=== PATIENT | female | born 1975 | race Caucasian/White ===

== ENCOUNTER → 2020-06-05 | Outpatient (CLI) | payer OTHER ==
[~2020-06-05] MED LIST: IRON 100 PLUS1 EACH PO; PRENATAL VITAM1 EAC2 PO
== END ==
LOC: LAB 16:46 → LAB SHORT 16:46
DX: N89.8 Other specified noninflammatory disorders of vagina (principal); B95.1 Streptococcus, group B, as the cause of diseases classified elsewhere; Z88.2 Allergy status to sulfonamides
CPT/HCPCS: 87070; 87147; 87205

== ENCOUNTER → 2020-09-15 | Outpatient (CLI) | payer OTHER | END | disposition home or self-care (01) | LOC: LAB 08:25 → LAB SHORT 08:25 | DX: R30.0 Dysuria (principal) | CPT/HCPCS: 87086 ==

== ENCOUNTER → 2020-09-20 | Outpatient (CLI) | payer OTHER | END | disposition home or self-care (01) | LOC: LAB SHORT 16:28 → LAB 16:28 | DX: N76.0 Acute vaginitis (principal) | CPT/HCPCS: 87070; 87205 ==

== ENCOUNTER 2023-10-24 08:01 | Day surgery (SDC) | payer OTHER ==
[~2023-10-24] VITALS: Ht 167.6 cm; Wt 62.0 kg
[2023-10-24] VITALS (12 sets, daily range): BP systolic 82–134; BP diastolic 49–83
[~2023-10-24 08:01] MED LIST changes: +CeFAZolin Sodium 2,000 MG in NS 100 ML IV SCH; +Diflucan100 MG PO; +Estrace Vagin42.5 GM VAG; +Lactated Ringer's 1,000 ML IV SCH; +NITR100CA PO; +PANTOPRAZOLE SO20 MG PO; +Preparation H26 GM; +VALA500 PO
--- NOTE | 2023-10-24 08:44 | NUR ---
Ambulatory in Day Surgery History, Chart, Medications and Allergies reviewed before start of procedure.Lungs clear T/O to Auscultation. Patient confirms NPO status and agrees with scheduled surgery. Patient reports completing Chlorhexadine shower X2 prior to admission to hospital.Surgical site prepped with 2% Chlorhexidine cloth wipe. Patient States Post-Procedure ride home has been arranged.
[2023-10-24] MEDS ORDERED: EpiNEPhrine 1 MG/1 ML 1ML Vial ONE (09:00)
[2023-10-24] MEDS ORDERED: Bupivacaine 0.5% HCl 5 MG/ML 30MLVIAL ONE (09:00)
[2023-10-24] MEDS ORDERED: Lidocaine 2%-Epineph 1:200000 20 ML SDV ONE (09:43)
[2023-10-24] MEDS ORDERED: Scopolamine Hydrobromide Patch TOP ONE (09:55)
[2023-10-24] MEDS ORDERED: Midazolam HCl 1MG / ML 2ML Vial IV ONE (09:55)
[2023-10-24] MEDS ORDERED: Ondansetron HCl 2 MG / ML 2ML Vial ONE (10:02)
[2023-10-24] MEDS ORDERED: propofoL 20 ML IV ONE (10:02)
[2023-10-24] MEDS ORDERED: Lidocaine HCl 2% 20 ML MDV ONE (10:02)
[2023-10-24] MEDS ORDERED: Dexamethasone Sod Phos 10 MG/ML 1ML VIAL ONE (10:02)
[2023-10-24] MEDS ORDERED: FentaNYL Citrate 50 MCG/ML 2 ML Injection ONE (10:02)
[2023-10-24] MEDS ORDERED: Ketorolac Tromethamine 30mg Vial ONE (10:02)
[2023-10-24] MEDS ORDERED: Rocuronium Bromide 10 MG/ML 5ML Injection IV ONE (10:02)
[2023-10-24] MEDS ORDERED: Albuterol 2.5 MG/3 ML VIAL INH PRN (10:25)
[2023-10-24] MEDS ORDERED: HYDROmorphone HCl/Pf 1MG SYR IV PRN (10:25)
[2023-10-24] MEDS ORDERED: FentaNYL Citrate 50 MCG/ML 2 ML Injection IV PRN ×2 (10:30→11:55)
[2023-10-24] MEDS ORDERED: Droperidol 5 mg/2 ml Vial IV PRN (10:30)
[2023-10-24] MEDS ORDERED: Glycopyrrolate 0.2 MG/ML 5ML VIAL ONE (10:36)
[2023-10-24] MEDS ORDERED: HYDROmorphone HCl/Pf 1MG SYR ONE (11:22)
[2023-10-24] MEDS ORDERED: Sugammadex Sodium 200 MG/2ML SDV (100 MG/ML) ONE (11:22)
[2023-10-24] MEDS ORDERED: DiphenhydrAMINE HCL 25 MG Cap PO PRN (11:55)
[2023-10-24] MEDS ORDERED: Simethicone 80 MG Chew PO PRN (12:00)
[2023-10-24] MEDS ORDERED: Ibuprofen 400 MG Tab PO PRN (12:00)
[2023-10-24] MEDS ORDERED: OxyCODONE HCL 5 MG TAB PO PRN (12:00)
[2023-10-24] MEDS ORDERED: Acetaminophen 325 MG TABLET PO PRN (12:00)
[2023-10-24] MEDS ORDERED: Ketorolac Tromethamine 30mg Vial IV SCH (12:00)
[2023-10-24] MEDS ORDERED: HYDROcodone 10-APAP 325 TAB PO PRN (12:00)
[2023-10-24] MEDS ORDERED: Lactated Ringer's 1,000 ML IV SCH (12:00)
[2023-10-24] MEDS ORDERED: Ondansetron HCl 2 MG / ML 2ML Vial IV PRN (13:30)
[2023-10-24] MEDS ORDERED: IBU800 M1 PO (15:03)
[2023-10-24] MEDS ORDERED: Percocet 5-3251 EACH PO (15:03)
[2023-10-24 15:08] LABS: BASOPHILS ABSOLUTE AUTO 0.01 K/mm3 (0.00-0.23); BASOPHILS PERCENT AUTO 0 % (0-2); EOSINOPHILS PERCENT AUTO 0 % (0-6); Hematocrit 34.8 % (33.0-51.0); Hemoglobin 11.6 g/dL (11.5-16.0); IMMATURE GRAN ABSOLUTE AUTO 0.04 K/mm3 (0.00-0.10); IMMATURE GRAN PERCENT AUTO 0 % (0-1); LYMPHOCYTES ABSOLUTE AUTO 0.43 K/mm3 (0.84-5.20); LYMPHOCYTES PERCENT AUTO 4 % (21-46); MONOCYTES ABSOLUTE AUTO 0.06 K/mm3 (0.16-1.47); MONOCYTES PERCENT AUTO 1 % (4-13); Mean Corpuscular HGB 29.4 pg (26.0-34.0); Mean Corpuscular HGB Conc 33.3 g/dL (31.5-36.5); Mean Corpuscular Volume 88 fL (80-100); Mean Platelet Volume 10.3 fL (9.1-12.4); NEUTROPHILS ABSOLUTE AUTO 9.87 K/mm3 (1.96-9.15); NEUTROPHILS PERCENT AUTO 95 % (41-73); Platelet Count 194 K/mm3 (150-400); RDW Coefficient Variation 13.2 % (11.7-14.2); RDW Standard Deviation 42.9 fL (35.1-46.3); Red Blood Cell Count 3.95 M/mm3 (3.80-5.20); White Blood Cell Count 10.41 K/mm3 (4.00-11.30)
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
[2023-10-25] MEDS ORDERED: Fluconazole 100 MG Tab PO SCH (09:00)
== END 2023-10-24 18:40 | disposition home or self-care (01) ==
LOC: ORSCMMR 08:01 → ORD 09:30 → SURS 12:35 → ORSCMMR 18:40
PROVIDERS: Obstetrics & Gynecology
PROC: 0UT9FZZ Resection of Uterus, Via Natural or Artificial Opening With Percutaneous Endoscopic Assistance (ICD-10-PCS; principal; 2023-10-24 09:30)
DX: N81.4 Uterovaginal prolapse, unspecified (principal); R10.2 Pelvic and perineal pain; R87.811 Vaginal high risk human papillomavirus (HPV) DNA test positive; F17.210 Nicotine dependence, cigarettes, uncomplicated
CPT/HCPCS: 36415; 85025; 86850; 86900; 86901; 88307; A9270; J0171; J0690; J1100; J1170; J1885; J2250; J2405; J2704; J3010; J7120